=== PATIENT | male | born 1980 | race Caucasian/White ===

== ENCOUNTER 2016-07-21 10:53 | Emergency (ER) | payer OTHER ==
[~2016-07-21] VITALS: Ht 177.8 cm; Wt 92.0 kg
[2016-07-21] MEDS ORDERED: AUGMENTIN875 MG PO (12:24)
[2016-07-21 12:40] VITALS: BP 108/68
== END 2016-07-21 12:42 | disposition home or self-care (01) ==
LOC: EDBD 10:53 → EME 10:53
PROC: 0CQ1XZZ Repair Lower Lip, External Approach (ICD-10-PCS; principal; 2016-07-21)
DX: S01.511A Laceration without foreign body of lip, initial encounter (principal); W54.0XXA Bitten by dog, initial encounter; Y99.0 Civilian activity done for income or pay
CPT/HCPCS: 99281; 99284; J3010